=== PATIENT | female | born 1995 | race Caucasian/White ===

== ENCOUNTER 2018-05-01 13:54 | Emergency (ER) | payer OTHER ==
[~2018-05-01] VITALS: Ht 160 cm; Wt 61.0 kg
[2018-05-01 14:40] LABS: BASOPHILS # (AUTO) 0.02 x10^3/uL (0-0.1); BASOPHILS % (AUTO) 0 % (0-1); EOSINOPHILS # (AUTO) 0.06 x10^3/uL (0-0.4); EOSINOPHILS % (AUTO) 1 % (1-7); LYMPHOCYTES % (AUTO) 6 % (22-44); MD NO; MEAN CORPUSCULAR HEMOGLOBIN 30.7 pg (27.0-34.8); MEAN CORPUSCULAR HGB CONC 33.4 g/dL (32.4-35.8); MEAN CORPUSCULAR VOLUME 91.8 fL (80-100); MEAN PLATELET VOLUME 7.4 fL (7.4-10.4); MONOCYTES % (AUTO) 6 % (2-9); NEUTROPHILS % (AUTO) 88 % (42-75); PLATELET COUNT 340 x10^3/uL (130-400); RED BLOOD COUNT 4.95 x10^6/uL (3.82-5.3)
--- NOTE | 2018-05-01 14:45 | NUR ---
PT PRESENTED TO ED WITH MULTIPLE COMPLAINTS. PT WITH N/V AND DIARRHEA. PT A&OX4. PT PLACED ON BP AND CONT. PULSE OXIMETER. ASSESSMENT COMPLETED. MD HAS SEEN PT AND ORDERS RECEIVED.
[2018-05-01 14:52] LABS: ALBUMIN 4.1 g/dL (3.4-5.0); ANION GAP 9 mmol/L (5-15); CALCIUM 9.3 mg/dL (8.5-10.1); CHLORIDE 109 mmol/L (98-107); CREATININE 0.97 mg/dL (0.55-1.02)
[2018-05-01] MEDS ORDERED: ONDANSETRON ODT 4 MG ONE (15:27)
[2018-05-01] MEDS ORDERED: POTASSIUM CHLORIDE 10% 40 MEQ/30 ML UDC PO ONE (15:30)
[2018-05-01] MEDS ORDERED: ONDANSETRON ODT 4 MG PO ONE (15:30)
[2018-05-01 15:56] VITALS: BP 94/58
--- NOTE | 2018-05-01 16:14 | NUR ---
pt discharged with discharge instructions and follow up instructions. pt verbalized understanding.
== END 2018-05-01 16:16 | disposition home or self-care (01) ==
LOC: ED 15:12
DX: R11.2 Nausea with vomiting, unspecified (principal); R19.7 Diarrhea, unspecified
CPT/HCPCS: 36415; 80048; 82040; 84703; 85025; 99283; Q0162